=== PATIENT | female | born 1975 | race Caucasian/White ===

== ENCOUNTER 2024-08-28 10:40 | Emergency (ER) | payer MEDICAID ==
[~2024-08-28] VITALS: Ht 160 cm; Wt 69.6 kg
[~2024-08-28 10:40] MED LIST: NO HOME MEDS
[2024-08-28] MEDS ORDERED: DOXY150T9 PO (11:23)
[2024-08-28] MEDS ORDERED: MUPI15CR12 TOP (11:23)
[2024-08-28 11:35] VITALS: BP 118/78; PULSE 74; RESP 14; TEMP 98.1; O2SAT 98
== END 2024-08-28 11:36 | disposition home or self-care (01) ==
LOC: ER 10:41
DX: L01.00 Impetigo, unspecified (principal); F12.90 Cannabis use, unspecified, uncomplicated; Z72.89 Other problems related to lifestyle; Z56.0 Unemployment, unspecified; Z79.2 Long term (current) use of antibiotics
CPT/HCPCS: 99283

== ENCOUNTER 2025-01-11 12:21 | Emergency (ER) | payer MEDICAID, OTHER ==
[~2025-01-11] VITALS: Ht 160 cm; Wt 70.5 kg
[~2025-01-11 12:21] MED LIST changes: +MUPI15CR12 TOP
[2025-01-11 12:23] VITALS: TEMP 97.5
[2025-01-11 14:03] VITALS: BP 160/67; PULSE 88; RESP 16; O2SAT 100
== END 2025-01-11 14:10 | disposition home or self-care (01) ==
LOC: ER 12:22
DX: T75.4XXA Electrocution, initial encounter (principal); F12.90 Cannabis use, unspecified, uncomplicated; Z79.899 Other long term (current) drug therapy; W86.8XXA Exposure to other electric current, initial encounter
CPT/HCPCS: 93005; 99283

== ENCOUNTER 2025-04-07 09:15 | Emergency (ER) | payer MEDICAID, OTHER ==
[~2025-04-07] VITALS: Ht 160 cm; Wt 69.2 kg
[2025-04-07 09:18] VITALS: BP 111/88; PULSE 105; RESP 20; TEMP 98.4; O2SAT 98
[2025-04-07] MEDS ORDERED: ONDA-243 PO (10:31)
[2025-04-07] MEDS ORDERED: TAM75C PO (10:31)
--- NOTE | 2025-04-07 10:31 | Physician Documentation ---
History of Present Illness ~ Chief Complaint: Flu Symptoms Stated Complaint: FEVER Time Seen by MD: 09:25 Primary Medical Doctor: none HPI PRESENTS WITH TWO DAYS OF FLU-LIKE SYMPTOMS. SHE HAS NAUSEA VOMITING WELL Day of Onset: April 07, 2025 Medication Reconciliation Allergies: Coded Allergies: prednisone (Unverified Allergy, Unknown, N/V, 04/07/25) Scheduled Mupirocin Calcium (Mupirocin), 1 APPLIC TOP Q8H Oseltamivir Phosphate* (Tamiflu*), 1 CAP PO Q12H Scheduled PRN ONDANSETRON ODT 4mg tablet (Ondansetron Odt), 1 TAB PO Q6H PRN PRN for nausea/vomiting Miscellaneous Medications Home Med List (No Home Medications), (Reported) Past Medical History Past Medical History: No Pertinent History Past Surgical History: other Smoking Status: Current every day smoker Alcohol Use: Occasionally Drug Use: marijuana Lives with: Spouse Lives In: Home Occupation: unemployed Review of Systems All Other Systems at this time: Reviewed and Negative ROS As stated above in the HPI, otherwise all systems are reviewed and negative. Physical Exam Vital Signs: Temperature: 98.4, Source: Oral, Heart Rate: 105, Respiratory Rate: 20, BP: 111/88, Pulse Oximetry: 98, Weight: 69.250 Oxygen Flow Rate: 0 Physical Exam General: Alert, no apparent distress. Respiratory: Lungs clear, no respiratory distress. Cardiovascular: Regular rate and rhythm, no murmurs. Gastrointestinal: Soft, nontender, nondistended. Bowels sounds present. Neurologic: Oriented x4. Psychiatric: Normal mood and affect. Skin: Normal color, warm and dry. No edema, no ecchymosis. Progress Results/Orders Results/Orders Completed Orders - AL العراقي NP Ondansetron Disint. Tablet (Zofran Odt T (04/07/25 10:50) Medications Received in ER Medications (Trade) Dose Ordered Sig/Wilian Route PRN Reason Start Time Stop Time Status Last Admin Dose Admin (Zofran ODT tablet) 4 mg ONCE ONCE PO 04/07/25 10:50 04/07/25 10:51 DC 04/07/25 10:58 4 MG Vital Signs 04/07/25 09:18 Temp 98.4 Pulse 105 Resp 20 B/P (MAP) 111/88 Pulse Ox 98 O2 Flow Rate 0 Medical Decision Making Findings PATIENT PRESENTS WITH FLU-LIKE SYMPTOMS GOING TO TREAT HER FOR NAUSEA VOMITING AND SEND HER HOME WITH TAMIFLU. SUSPECTING FLU TYPE A HAS IT HAS BEEN PREVALENT Differential Dx:Considerations: Include: CVA, Dehydration, Drug toxicity, Electrolyte imbalance, Influenza, Meningitis, Mycardial infarction, Pneumonia, Pneumonitis, Pulmonary embolus, Pyelonephritis, Respiratory failure, Sepsis, UTI, Viral Syndrome, Other Departure Disposition: HOME / SELF CARE / HOMELESS Impression: Primary Impression: Influenza Condition: Stable Discharge Instructions: Influenza, Adult Referrals: NO PRIMARY CARE PROVIDER (PCP) Prescriptions Oseltamivir Phosphate* (Tamiflu*) 75 Mg Capsule 1 CAP PO Q12H for 5 Days, #10 CAP Prov: AL العراقي NP 04/07/25 ONDANSETRON ODT 4mg tablet (ONDANSETRON ODT) 4 Mg Tab.rapdis 1 TAB PO Q6H PRN PRN for nausea/vomiting for 4 Days, #16 TAB 0 Refills Prov: AL العراقي DEBONE SUPERVISOR 04/07/25 Education Educated: Patient Educated regarding: diagnosis Signature Scribe Signature: Y Attestation: The note accurately reflects work and decisions made by me.Al العراقي - AVRIL 04/07/25 15:27 AL العراقي NP April 07, 2025 10:31
[2025-04-07] MEDS: ondansetron 4mg rapidly disintigrating tab PO ONE (10:58)
== END 2025-04-07 11:10 | disposition home or self-care (01) ==
LOC: ER 09:15
DX: J11.1 Influenza due to unidentified influenza virus with other respiratory manifestations (principal); Z88.8 Allergy status to other drugs, medicaments and biological substances; F17.200 Nicotine dependence, unspecified, uncomplicated; F12.90 Cannabis use, unspecified, uncomplicated; Z72.89 Other problems related to lifestyle; Z79.899 Other long term (current) drug therapy; Z56.0 Unemployment, unspecified
CPT/HCPCS: 99283

== ENCOUNTER 2025-04-09 09:09 | Emergency (ER) | payer MEDICAID ==
[~2025-04-09] VITALS: Ht 162.6 cm; Wt 68.1 kg
[~2025-04-09 09:09] MED LIST changes: +ONDA-243 PO; +TAM75C PO
[2025-04-09 09:43] LABS: BASOPHILS % (AUTO) 0.1 % (0-1); EOSINOPHILS % (AUTO) 0.1 % (0-6); HEMATOCRIT 43.1 % (35.0-45.0); HEMOGLOBIN 14.5 g/dl (12.0-16.0); LYMPHOCYTES # (AUTO) 0.5 X10'3 (1.1-4.8); LYMPHOCYTES % (AUTO) 6.2 % (21-51); MEAN CORPUSCULAR HEMOGLOBIN 30.6 PG (27.0-31.0); MEAN CORPUSCULAR HGB CONC 33.5 g/dL (33.0-36.5); MEAN CORPUSCULAR VOLUME 91.4 FL (78-98); MEAN PLATELET VOLUME 7.6 FL (7.4-10.4); MONOCYTES # (AUTO) 0.4 X10'3 (0-0.9); MONOCYTES % (AUTO) 4.4 % (2-12); NEUTROPHILS # (AUTO) 7.2 X10'3 (1.8-7.7); NEUTROPHILS % (AUTO) 89.2 % (42-75); PLATELET COUNT 234 X10'3 (140-440); RED BLOOD COUNT 4.72 X10'6 (4.20-5.60); RED CELL DISTRIBUTION WIDTH 14.3 % (11.5-14.5); WHITE BLOOD COUNT 8.1 X10'3 (4.5-11.0)
[2025-04-09 09:47] LABS: BILIRUBIN,URINE MODERATE (Neg); CLARITY,URINE SLIGHTLY CLOUDY (Clear); GLUCOSE, URINE NEGATIVE (Neg); KETONES,URINE 40 mg/dl (Neg); LEUKOCYTE ESTERASE ,URINE NEGATIVE (Neg); NITRITES, URINE NEGATIVE (Neg); OCCULT BLOOD,URINE LARGE (Neg); PROTEIN,URINE >=300 mg/dl (Neg)
[2025-04-09 09:52] LABS: URINE HCG NEGATIVE (NEG)
--- NOTE | 2025-04-09 09:53 | ELECTROCARDIOGRAPH REPORT ---
[facility] Test Date: 2025-04-09 Test Time: 09:51:15 Pat Name: MOE DEGROOT Department: [facility] Patient ID: [facility]-[id number] Room: Gender: F Biological Technician: : 1975 Requested By: ROSA TOPETE Order Number: [id number] Reading MD: Dr. Warren Delong Measurements Intervals [place] Rate: 100 P: 50 MT: 172 QRS: 76 QRSD: 90 T: 59 QT: 321 QTc: 414 Interpretive Statements Sinus tachycardia Electronically Signed On 04-10-2025 17:54:[address] Warren Delong Please click the below link to view image of tracing.
[2025-04-09 10:09] LABS: ALANINE AMINOTRANSFERASE 33 U/L (12-78); ALBUMIN 2.3 G/DL (3.4-5.0); ALBUMIN/GLOBULIN RATIO 0.5 (1.1-1.5); ALKALINE PHOSPHATASE 143 IU/L (46-116); ANION GAP 11 (8-16); ASPARTATE AMINO TRANSFERASE 22 U/L (10-37); BILIRUBIN,TOTAL 0.5 MG/DL (0.1-1.0); BLOOD UREA NITROGEN 10 MG/DL (7-18); BUN/CREATININE RATIO 11.9 (10.0-20.0); CHLORIDE 95 MMOL/L (99-107); CREATININE 0.84 MG/DL (0.40-0.90); GLUCOSE 119 MG/DL (70-104); POTASSIUM 3.9 MMOL/L (3.5-5.1); SODIUM 130 MMOL/L (135-145); TOTAL CARBON DIOXIDE 24.3 MMOL/L (24-32); TOTAL PROTEIN 6.5 G/DL (6.4-8.2); eCRCL 72 ML/MIN; eGFR 73 ML/MIN
[2025-04-09] MEDS: ketorolac trometh 30MG/ML vial 30 MG/ML VIAL IV ONE (10:14)
[2025-04-09] MEDS: normal saline 1000ML IV soln IVB ONE (10:15)
[2025-04-09 10:18] LABS: LIPASE 38 U/L (16-77); MAGNESIUM 1.9 MG/DL (1.5-2.4); PRO BRAIN NATRIURETIC PEPTIDE 105 PG/ML (0-125)
[2025-04-09 10:19] LABS: COLOR,URINE DARK YELLOW (Yellow); UA COLLECTION TYPE CLN CATCH MIDSTREAM
[2025-04-09 10:22] LABS: BACTERIA,URINE 1+ /HPF (Neg); MUCUS STRANDS NONE SEEN /LPF (Neg); SQUAMOUS EPITHELIAL CELL,UR FEW /LPF (FEW); TRANSITIONAL EPI CELLS,URINE FEW /HPF; WBC,URINE 0-4 /HPF (0-4)
[2025-04-09 10:23] LABS: RBC,URINE 20-50 /HPF (0-2); STARCH,URINE FEW /HPF (NEGATIVE)
--- NOTE | 2025-04-09 10:28 | RADIOLOGY REPORT ---
DI CHEST,SINGLE VIEW, HISTORY: Left-sided chest pain, shortness a breath COMPARISON: None None TECHNICAL DATA: 1 view of the chest was obtained. FINDINGS: Lines and tubes: None Cardiomediastinal silhouette: normal Pulmonary vasculature: normal Lung expansion: normal Lung airspace: Lung interstitium: normal Pleura: normal Pneumothorax: no Bones: Unremarkable Other: no IMPRESSION: Left upper lobe consolidation could be pneumonia.
[2025-04-09] MEDS: CefTRIAXone/D5W-Rocephin 1gm 50 ML IV ONE (11:02)
[2025-04-09] MEDS: azithromycin 250mg tablet PO ONE (11:03)
[2025-04-09 11:09] VITALS: BP 125/76; PULSE 95; RESP 16; TEMP 99.1; O2SAT 97
[2025-04-09] MEDS ORDERED: AMOX-580 PO (12:34)
--- NOTE | 2025-04-09 12:35 | Physician Documentation ---
History of Present Illness ~ General Chief Complaint: Abdominal Pain Stated Complaint: FLU LIKE SYMPTOMS Time Seen by MD: 09:23 Primary Medical Doctor: None; [facility] History of Present Illness Initial Comments This is a pleasant 49-year-old female who comes in for evaluation of four day fever with a T-max of 103, progressively worsening generalized weakness, flu- like symptoms, and eventual development of left-sided chest pain that is exertional but not positional. Does report cough but not productive. She has been seen. Earlier, diagnosed with sinusitis, discharge we the allergy spray. Not improving, who comes into secondary. Denies other symptoms. No concern for tobacco, alcohol or illicit substances soon as Medication Reconciliation Allergies: Coded Allergies: prednisone (Unverified Allergy, Unknown, N/V, 04/07/25) Scheduled Mupirocin Calcium (Mupirocin), 1 APPLIC TOP Q8H Oseltamivir Phosphate* (Tamiflu*), 1 CAP PO Q12H Scheduled PRN ONDANSETRON ODT 4mg tablet (Ondansetron Odt), 1 TAB PO Q6H PRN PRN for nausea/vomiting Miscellaneous Medications Home Med List (No Home Medications), (Reported) Past Medical History Past Medical History: No Pertinent History Past Surgical History: other Alcohol Use: Occasionally Drug Use: marijuana Lives with: Spouse Lives In: Home Occupation: unemployed Review of Systems ROS 10 point review of systems was performed and unless noted above in HPI is negative for acute process/complaint. Physical Exam Physical Exam Vital Signs: Temperature: 99.1, Source: Oral, Heart Rate: 95, Respiratory Rate: 16, BP: 125/76, Pulse Oximetry: 97, Weight: 68.100 Oxygen Flow Rate: 0 Physical Exam GENERAL: Awake, alert, oriented, GCS 15, no apparent distress, non-toxic appearing, answers questions, follows commands appropriately. Examined in room 9. HEENT: Atraumatic, normocephalic, pupils equal, extraocular muscles intact, sclerae anicteric, mucus membranes moist, oropharynx is clear, no stridor. NECK: supple, full active range of motion, trachea midline, no thyromegaly, no lymphadenopathy, no JVD. CARDIOVASCULAR: Intermittently tachycardic and regular rate/rhythm, no murmurs/gallops/rubs, Pulses are 2+ in all extremities and symmetric. Capillary refill less than 2 seconds. PULMONARY: Nonlabored, good air movement ,no respiratory distress, speaking in full sentences, coarse breath sounds bilaterally, no wheezing, left upper ronchi, no rales, no accessory muscle use. GASTROINTESTINAL: Soft, non-tender, non-distended, normal active bowel sounds, no organomegaly, no pulsatile masses, no CVA tenderness. NEUROLOGIC: Lucid with normal mental status. Normal facial symmetry. Moves all extremities symmetrically and with purpose. No truncal ataxia. Speech is fluid without evidence of dysarthria or aphasia, no focal deficits appreciated. MUSCULOSKELETAL: There is full range of motion of all extremities. There is no joint pain or joint swelling or joint erythema. There is no muscle pain or tenderness or swelling. EXTREMITIES: warm, well-perfused, no cyanosis, no clubbing, no edema, no acute deformities. Skin: warm, dry, no rashes or lesions, no jaundice, no petechiae orpurpura. No ecchymosis. PSYCHIATRIC: Normal affect, normal insight, normal concentration. Focused exam: [] Progress Results/Orders Results/Orders Orders - ROSA TOPETE DO Chest,Single View (04/09/25 09:42) Monitor (04/09/25 09:42) Saline Lock (04/09/25 09:42) Completed Orders - ROSA TOPETE DO Hcg, Ur Ql (04/09/25 09:15) Cbc/Diff (04/09/25 09:15) BMP (04/09/25 09:15) Lipase (04/09/25 09:15) CMP (04/09/25 09:15) ESR (04/09/25 09:42) Chest,Single View (04/09/25 09:42) Normal Saline 1000ml (Sodium Chloride 10 (04/09/25 09:45) Hs Troponin I W Calculations (04/09/25 09:42) Hs Troponin I W Calculations (04/09/25 11:42) Ketorolac Trometh 30mg/Ml Vial (Toradol (04/09/25 09:45) Electrocardiogram (04/09/25 ) C-Reactive Protein (04/09/25 09:37) PBNP (04/09/25 09:37) MG (04/09/25 09:37) Ua W/Microscopic, Cult If Ind (04/09/25 09:16) Ceftriaxone/N5s-Vmxtaril 1gm (Rocephin 1 (04/09/25 10:35) Azithromycin Tablet (Zithromax Tablet) (04/09/25 10:35) Medications Received in ER Medications (Trade) Dose Ordered Sig/Wilian Route PRN Reason Start Time Stop Time Status Last Admin Dose Admin (sodium chloride 1000ml IV soln) 1,000 ml ONCE ONCE IVB 04/09/25 09:45 04/09/25 09:47 DC 04/09/25 10:15 1,000 ML (Toradol inj. 30mg/ml) 30 mg ONCE ONCE IV 04/09/25 09:45 04/09/25 09:47 DC 04/09/25 10:14 30 MG Ceftriaxone Sodium 50 ml @ 100 mls/hr ONCE ONCE IV 04/09/25 10:35 04/09/25 11:04 DC 04/09/25 11:02 100 MLS/HR (Zithromax tablet) 500 mg ONCE ONCE PO 04/09/25 10:35 04/09/25 10:36 DC 04/09/25 11:03 500 MG Vital Signs 04/09/25 04/09/25 04/09/25 04/09/25 09:10 10:05 10:10 10:14 Temp 100.4 Pulse 126 104 Resp 20 17 17 18 B/P (MAP) 114/84 116/77 (90) Pulse Ox 97 O2 Flow Rate 0 04/09/25 04/09/25 04/09/25 04/09/25 10:15 10:30 10:45 11:09 Temp 99.1 Pulse 95 96 107 95 Resp 16 24 23 16 B/P (MAP) 121/86 (98) 116/79 (91) 119/81 (94) 125/76 (92) Pulse Ox 98 98 97 97 O2 Flow Rate 0 Laboratory Tests Test 04/09/25 09:16 04/09/25 09:37 04/09/25 11:48 Urine Specimen Description Cln catch midstream Urine Color Dark yellow Urine Clarity Slightly cloudy Urine pH 6.0 Urine Specific [place] 1.025 Urine Protein >=300 H Urine Glucose (UA) Negative Urine Ketones 40 H Urine Occult Blood Large H Urine Nitrite Negative Urine Bilirubin Moderate Urine Urobilinogen 1.0 Urine Leukocyte Esterase Negative Urine RBC 20-50 Urine WBC 0-4 Urine Squamous Epithelial Cells Few Urine Transitional Epithelial Cells Few Urine Bacteria 1+ Urine Starch Few Urine Mucus None seen Urine Culture Indicated Not ind Volume Urine Centrifuged 10 ml Urine HCG, Qualitative Negative Urine Comment White Blood Count 8.1 Red Blood Count 4.72 Hemoglobin 14.5 Hematocrit 43.1 Mean Corpuscular Volume 91.4 Mean Corpuscular Hemoglobin 30.6 Mean Corpuscular Hemoglobin Concent 33.5 Red Cell Distribution Width 14.3 Platelet Count 234 Mean Platelet Volume 7.6 Neutrophils (%) (Auto) 89.2 H Lymphocytes (%) (Auto) 6.2 L Monocytes (%) (Auto) 4.4 Eosinophils (%) (Auto) 0.1 Basophils (%) (Auto) 0.1 Neutrophils # (Auto) 7.2 Lymphocytes # (Auto) 0.5 L Monocytes # (Auto) 0.4 Eosinophils # (Auto) 0.0 Basophils # (Auto) 0.0 CBC Comment Erythrocyte Sedimentation Rate 72 H Sodium Level 130 L Potassium Level 3.9 Chloride Level 95 L Carbon Dioxide Level 24.3 Anion Gap 11 Blood Urea Nitrogen 10 Creatinine 0.84 Estimated GFR/1.73 m2 73 BUN/Creatinine Ratio 11.9 Glucose Level 119 H Calcium Level 9.0 Magnesium Level 1.9 Total Bilirubin 0.5 Aspartate Amino Transf (AST/SGOT) 22 Alanine Aminotransferase (ALT/SGPT) 33 Alkaline Phosphatase 143 H Troponin I High Sensitivity < 4 L < 4 L Troponin I High Sens Percent Delta Troponin I Hi Sens Absolute Change C-Reactive Protein 46.20 H Pro-B-Type Natriuretic Peptide 105 Total Protein 6.5 Albumin 2.3 L Globulin 4.2 Albumin/Globulin Ratio 0.5 L Lipase 38 Chemistry Comments Medical Decision Making Findings Facility Status: ED Holds, [facility] process The plan was discussed with the patient, who demonstrates clear understanding of the plan and is in agreement with the plan unless otherwise noted in the chart. All questions have been answered, all concerns were addressed unless otherwise documented. I was available throughout their ED stay for frequent reassessment and questions. Differential Diagnoses (considered and possible or likely): [Differential diagnosis considered includes COVID, influenza, RSV, upper or lower respiratory infection with non-typable viruses, chest wall pain, pleurisy, pneumonia, pulmonary embolus, GERD, esophagitis, gastritis, anxiety, stress reaction, costochondritis, acute coronary syndrome, aortic dissection, pericarditis, myocarditis, or pneumothorax.] ??Differential Diagnoses (considered and unlikely, not requiring evaluation currently): [] MDM Data Please see [facility] for the following: Independent Historians and external Records Review. Historian: [Patient] Independent Historians: ?[Record review] Medication Management: [Reviewed medication list] Social History and determinants: [Reviewed] Please see the body of the note for the following: Any independent interpretations of ECG, imaging studies. All vitals signs/haemodynamics, ordered tests were independently reviewed and interpreted by myself. Nursing triage complaint and vitals reviewed, additional nursing notes were reviewed as available and I agree unless otherwise noted or documented in contradiction in the chart Vital Signs: Independently reviewed Labs: Independently interpreted Imaging: Independently interpreted Old Medical Records: Independently reviewed, see [facility] for relevant summary and information Pulse Oximetry: [97%] interpreted as [normal on room air] by me [Medical Physiologist: [Regular Rate, Regular rhythm, no ectopy, NSR] reviewed and interpreted by me] Additionally notably showing: [Unremarkable hematologic workup, she is hemodynamically stable, however her chest x-ray is notable for left upper lung pneumonia] Tests considered but not ordered include: [Advanced imaging has been considerably does not appear to be necessary at this time] Social Determinants of Health Impact: Patient was evaluated in [facility], [facility] [place] to healthcare due to below par ratio of patient to medical providers. [] Comorbid Conditions Impacting Present Evaluation and Care/Treatment: [None reported] Management Discussions with other Healthcare Providers: [] Treatment and Disposition Medication Management (Given or considered): [Antibiotics]. See EMR for details Consideration for Hospitalization/Escalation/Deescalation of Care: Admission for observation has been considered, [however the patient is able to tolerate p.o., their symptoms are controlled, they are able to rely on oral medications, and their chief complaint/diagnosis can be managed on outpatient basis.] ?ED Course:?[Patient has community-acquired pneumonia. She received antibiotics respiratory initiation of care.] No evidence of hypoxia. ?Shared decision making:?[Patient is hemodynamically stable for discharge home with follow with their primary care provider. [ ] Specific and cautious return precautions provided and discussed with full understanding. Any incidental findings were also discussed and follow up recommendations given. [] All questions answered. Patient/family were able to verbalize back return precautions. Patient/family agree to plan. Copies of imaging and laboratory studies were provided.] Code status:?FULL Please see the full Electronic Medical Record for full details of nursing documentation, medications list, other records of complete past medical history and conditions, vital signs, laboratory studies, and any radiologic study interpretations by radiologists. Portions of this note were completed using [employer] dictation software and as a result there may exist minor errors in spelling. I have reviewed elements of past family and social history and agree as included in note. Departure Disposition: HOME / SELF CARE / HOMELESS (I) Impression: Primary Impression: Community acquired pneumonia Condition: Improved Discharge Instructions: Community-Acquired Pneumonia, Adult Referrals: NO PRIMARY CARE PROVIDER (PCP) Prescriptions Amox Tr/Potassium Clavulanate 875/125 MG (Augmentin 875/125 MG) 875 Mg-125 Mg Tablet 1 TAB PO Q12H for 10 Days, #20 TAB Prov: ROSA TOPETE DO 04/09/25 Education Educated: Patient Educated regarding: diagnosis, treatment, prognosis, need for follow up Signature Scribe Signature: No scribe Attestation: This note accurately reflects clinical decisions, work performed by myself, DO EFREM Sandoval NICHOLAS M DO April 09, 2025 12:35
== END 2025-04-09 13:44 | disposition home or self-care (01) ==
LOC: ER 09:09
DX: J18.9 Pneumonia, unspecified organism (principal); F12.90 Cannabis use, unspecified, uncomplicated; Z88.8 Allergy status to other drugs, medicaments and biological substances; Z79.899 Other long term (current) drug therapy; Z72.89 Other problems related to lifestyle; Z56.0 Unemployment, unspecified
CPT/HCPCS: 36415; 71045; 80053; 81001; 81025; 83690; 83735; 83880; 84484; 85025; 85651; 86140; 93005; 96361; 96374; 96375; 99285; J0696; J1885; J7030